=== PATIENT | male | born 1985 | race Two or more races ===

== ENCOUNTER 2020-11-15 15:34 | Inpatient (IN) | payer MEDICAID ==
[~2020-11-15] VITALS: Ht 175.3 cm; Wt 107.6 kg
[2020-11-15] MEDS ORDERED: HALOPERIDOL 5 MG TABLET PO PRN (17:45)
[2020-11-15 18:21] LABS: GLUCOMETER DEV NAME(LOC) POC.BV
[2020-11-15] MEDS: LORazepam 2 MG TABLET PO PRN (20:10)
[2020-11-15] MEDS: OLANZapine 5 MG TABLET PO SCH (20:10)
[2020-11-15 20:15] VITALS: BP 134/92
[2020-11-16 07:08] VITALS: BP 128/90
[2020-11-16 08:42] VITALS: BP 127/72
[2020-11-16] MEDS: OLANZapine 5 MG TABLET PO SCH ×2 (08:50→16:47)
[2020-11-16] MEDS: LORazepam 2 MG TABLET PO PRN (08:50)
[2020-11-16 16:18] VITALS: BP 123/80
[2020-11-17 00:56] VITALS: BP 123/80
[2020-11-17] MEDS: LORazepam 2 MG TABLET PO PRN (08:20)
[2020-11-17] MEDS: OLANZapine 5 MG TABLET PO SCH ×2 (08:43→16:38)
[2020-11-17 09:43] VITALS: BP 131/75
[2020-11-17 16:57] VITALS: BP 120/75
[2020-11-18 06:41] VITALS: BP 125/75
[2020-11-18 07:13] LABS: BASOPHILS % (AUTO) 1.1 % (0.0-2.0); EOSINOPHILS % (AUTO) 1.4 % (1.0-6.0); HEMATOCRIT 44.4 % (41-53); HEMOGLOBIN 15.4 g/dL (13.5-17.5); LYMPHOCYTES % (AUTO) 28.4 % (22.0-44.0); MEAN CORPUSCULAR HEMOGLOBIN 32.1 pg (26.0-34.0); MEAN CORPUSCULAR HGB CONC 34.7 G/dL (31.0-37.0); MEAN CORPUSCULAR VOLUME 92 fL (80-100); MONOCYTES # (AUTO) 1.1 K/uL (0.1-1.0); MONOCYTES % (AUTO) 16.4 % (2.0-9.0); NEUTROPHILS # (AUTO) 3.6 K/uL (1.8-7.7); NEUTROPHILS % (AUTO) 52.7 % (40.0-70.0); PLATELET COUNT (AUTO) 268 K/uL (150-450); RED CELL DISTRIBUTION WIDTH 13.5 % (11.5-14.5)
[2020-11-18 07:20] LABS: HEMOGLOBIN A1C 5.5 % (3.8-5.6)
[2020-11-18 08:02] LABS: ALANINE AMINOTRANSFERASE 27 U/L (12-78); ALBUMIN 3.5 g/dL (3.4-5.0); ALKALINE PHOSPHATASE 107 U/L (46-116); ANION GAP 13 mmol/L (8-16); ASPARTATE AMINOTRANSFERASE 11 U/L (15-37); BILIRUBIN,TOTAL 0.4 mg/dL (0.1-1.0); CALCIUM, TOTAL 8.5 mg/dL (8.8-10.5); CARBON DIOXIDE 24 mmol/L (22-29); CHLORIDE 103 mmol/L (98-107); CHOL/HDL RATIO 5.1 (4.2-7.3); CHOLESTEROL 192 mg/dL (131-200); CREATININE 0.86 mg/dL (0.60-1.30); FREE T4 (FREE THYROXINE) 1.13 ng/dL (0.76-1.46); GLOMERULAR FILTR. RATE CALC > 60 mL/min (>60); GLUCOSE,RANDOM 90 mg/dL (70-110); HDL CHOLESTEROL 38 mg/dL (40-60); LDL CHOL (CALC.) 137 mg/dL (0-130); POTASSIUM 3.9 mmol/L (3.5-5.1); SODIUM SERUM 140 mmol/L (136-145); THYROID STIMULATING HORMONE 1.33 uIU/mL (0.36-3.74); TOTAL PROTEIN, SERUM 6.8 g/dL (6.4-8.2); TRIGLYCERIDES 83 mg/dL (15-150); UREA NITROGEN, BLOOD 12 mg/dL (7-18)
[2020-11-18] MEDS: LORazepam 2 MG TABLET PO PRN (08:20)
[2020-11-18 08:25] VITALS: BP 116/63
[2020-11-18] MEDS: OLANZapine 5 MG TABLET PO SCH ×2 (08:45→16:37)
[2020-11-18 16:10] VITALS: BP 121/69
[2020-11-19 01:17] VITALS: BP 128/86
[2020-11-19] MEDS: ZOLPIDEM TARTRATE 10 MG TABLET PO PRN (01:22)
[2020-11-19] MEDS: LORazepam 2 MG TABLET PO PRN ×2 (01:22→16:58)
[2020-11-19 08:21] VITALS: BP 113/69
[2020-11-19] MEDS: OLANZapine 5 MG TABLET PO SCH ×2 (09:06→16:58)
[2020-11-19 16:30] VITALS: BP 120/81
[2020-11-20] MEDS: ZOLPIDEM TARTRATE 10 MG TABLET PO PRN (00:44)
[2020-11-20] MEDS: LORazepam 2 MG TABLET PO PRN ×2 (00:44→08:15)
[2020-11-20 00:57] VITALS: BP 144/91
[2020-11-20] MEDS: OLANZapine 5 MG TABLET PO SCH (08:31)
[2020-11-20 08:35] VITALS: BP 130/84
[2020-11-20] MEDS ORDERED: OLAN5TAB52 PO (11:01)
== END 2020-11-20 14:30 | disposition home or self-care (01) | DRG 750 ==
LOC: B3A 19:08
PROVIDERS: ADMIT Psychiatry & Neurology Psychiatry; ATTEND Psychiatry & Neurology Psychiatry
DX: F20.9 Schizophrenia, unspecified (principal); G93.40 Encephalopathy, unspecified; R45.851 Suicidal ideations; Z20.822 Contact with and (suspected) exposure to COVID-19; E66.9 Obesity, unspecified; F15.90 Other stimulant use, unspecified, uncomplicated; Z68.35 Body mass index [BMI] 35.0-35.9, adult; Z59.0 Homelessness; Z87.891 Personal history of nicotine dependence
CPT/HCPCS: 80053; 80061; 83036; 84439; 84443; 85025